=== PATIENT | male | born 1960 ===

== ENCOUNTER 2019-07-22 08:59 | Day surgery (SDC) | payer OTHER ==
[2019-07-22] VITALS (8 sets, daily range): BP systolic 108–135; BP diastolic 68–82
[~2019-07-22] VITALS: Ht 172.7 cm; Wt 70.3 kg
--- NOTE | 2019-07-22 06:49 | Anethesia Preoperative Eval ---
Anesthesia Pre-op PMH/ROS General Date of Evaluation: Jul 22, 2019 Time of Evaluation: 06:48 Anesthesiologist: krystin ASA Score: ASA 3 Mallampati Score Class I : Soft palate, uvula, fauces, pillars visible Class II: Soft palate, uvula, fauces visible Class III: Soft palate, base of uvula visible Class IV: Only hard plate visible Mallampati Classification: Class II Surgeon: gaby Diagnosis: gerd Surgical Procedure: egd Anesthesia History: none Social History: smoking - nonsmoker Family History: no anesthesia problems Medications: see eMAR Patient NPO?: Yes Past Medical History Cardiovascular: Reports: HTN Gastrointestinal/Genitourinary: Reports: GERD Neurologic/Psychiatric: Reports: depression/anxiety Musculoskeletal/Integumentary: Reports: other - back pain PSxH Narrative: shoulder surgery Anesthesia Pre-op Phys. Exam Physician Exam Last Vital Signs Date Time Temp Pulse Resp B/P (MAP) Pulse Ox O2 Delivery O2 Flow Rate FiO2 07/22/19 09:54 97.8 57 18 135/77 99 Room Air Constitutional: NAD Neurologic: CN 2-12 intact Cardiovascular: RRR Respiratory: CTA Gastrointestinal: S/NT/ND Airway Exam Mallampati Score: Class II MO: limited Neck: flexible TMD: 2fb ROM: limited Anesthesia Pre-op A/P Risk Assessment & Plan Assessment: asa3 Plan: mac Status Change Before Surgery: No Pre-Antibiotics Drug: Daphnie Vasques MD Jul 22, 2019 06:49
[2019-07-22] MEDS ORDERED: NKM (09:39)
[2019-07-22] MEDS ORDERED: Lidocaine 1% MPF 10mg/ml 5ml ONE (10:00)
[2019-07-22] MEDS ORDERED: Propofol 200mg/20ml IV ONE (10:00)
[2019-07-22] MEDS ORDERED: LR 1000ml ONE (10:00)
--- NOTE | 2019-07-22 10:05 | Short Stay Surgery H&P ---
History of Present Illness History of Present Illness Chief Complaint Abdominal pains/GERDs and dysphagia HPI Zeb Dawkins is a 59 year old male who was admitted on for GERD Patient History PAST MEDICAL HISTORY: (1) Hypertension (2) History of shoulder surgery Medication History Scheduled No Known Medications* (NKM - No Known Medications*), 0 ., (Reported) Review of Systems Cardiovascular: Reports: no symptoms Respiratory: Reports: no symptoms Skeletal: Reports: trauma Gastrointestinal: Reports: gastro esophageal reflux disease Genitourinary: Reports: no symptoms Neurologic: Reports: no symptoms Endocrine: Reports: no symptoms Hematologic: Reports: no symptoms Physical Exam Vital Signs Last Vital Signs Date Time Temp Pulse Resp B/P (MAP) Pulse Ox O2 Delivery O2 Flow Rate FiO2 07/22/19 09:54 97.8 57 18 135/77 99 Room Air Skin: normal HENT: normal Heart: normal Lungs: normal Abdomen: abnormal Extremities: normal Genitourinary: normal Plan Plan of Care Upper GI. endoscopy with biopsy. Preop Interventions None. Summary of Findings see the reports. Attestation Are the patient's medical conditions optimized for surgery? Attestation Response: yes Richelle Mcneil MD Jul 22, 2019 10:05
--- NOTE | 2019-07-22 10:07 | Discharge Instructions ---
Discharge Instructions Discharge Instructions Follow up with: No need to follow with Dr. Mcneil. Reports will be sent to the [facility] For Congestive Heart Failure Reminder Report to your physician any weight gain of 5 pounds or more in one week. Richelle Mcneil MD Jul 22, 2019 10:07
--- NOTE | 2019-07-22 10:31 | Endoscopy Procedure Note ---
Endoscopy Procedure Note General Indication for Procedure: Abdominal/epigastric pains and GERDS. Dysphagia. Procedures Performed: EGD - Moderate gastritis, gastric body biopsied. Specimen: yes Pt Tolerated Procedure Well: Yes Estimated Blood Loss: none Anesthesia Anesthesiologist: Dr. Weaver Anesthesia: moderate sedation Medications Medication Given: see anesthesia record Inserted Devices Implant(s) used?: No Quality Quality of Bowel Preparation: Excellent Was there any complications?: No GI Core Measures 50 yrs or older w/o bx or poly: Not Applicable 10yrs. F/U recommended: Not Applicable If not recommended, why?: Med reason:<3 yrs.: System Reason:<3 yrs.: Richelle Mcneil MD Jul 22, 2019 10:31
--- NOTE | 2019-07-22 10:32 | Discharge Instructions ---
Discharge Instructions Discharge Instructions Follow up with: Non need to follow with this doctor. Reports will be sent to law office. For Congestive Heart Failure Reminder Report to your physician any weight gain of 5 pounds or more in one week. Richelle Mcneil MD Jul 22, 2019 10:32
[2019-07-22] MEDS ORDERED: LR 1000ml 1,000 ML IVLG SCH (10:37)
[2019-07-22] MEDS ORDERED: DiphenhydrAMINE 50mg/ml Inj IVP PRN (10:45)
[2019-07-22] MEDS ORDERED: fentaNYL 100 mcg/2 mL IV PRN (10:45)
[2019-07-22] MEDS ORDERED: Midazolam 2mg/2ml Inj IVP PRN (10:45)
[2019-07-22] MEDS ORDERED: Atropine Inj 1mg/10ml Syr IV PRN (10:45)
--- NOTE | 2019-07-22 10:54 | Immediate Post-Op Evaluation ---
Immediate Post-Op Evalulation Immediate Post-Op Evalulation Procedure: egd w/bx Date of Evaluation: Jul 22, 2019 Time of Evaluation: 10:53 IV Fluids: 250ml lr Blood Products: none Estimated Blood Loss: negligible Blood Pressure Systolic: 112 Blood Pressure Diastolic: 68 Pulse Rate: 50 Respiratory Rate: 18 O2 Sat by Pulse Oximetry: 99 Temperature (Fahrenheit): 97.2 Pain Score (1-10): 0 Nausea: No Vomiting: No Complications none Patient Status: awake, reacts, patent Hydration Status: adequate Drug: Daphnie Vasques MD Jul 22, 2019 10:54
--- NOTE | 2019-07-22 10:56 | 48 Hour Post Anesthesia Eval ---
Post Anesthesia Evaluation Procedure: egd w/bx Date of Evaluation: Jul 22, 2019 Time of Evaluation: 10:55 Blood Pressure Systolic: 117 0: 71 Pulse Rate: 49 Respiratory Rate: 18 Temperature (Fahrenheit): 97.2 O2 Sat by Pulse Oximetry: 100 Airway: patent Nausea: No Vomiting: No Pain Intensity: 0 Hydration Status: adequate Cardiopulmonary Status: stable Mental Status/LOC: patient returned to baseline Post-Anesthesia Complications: none Follow-up care needed: N/A Daphnie Weaver MD Jul 22, 2019 10:56
--- NOTE | 2019-07-22 15:45 | Operative Note - Dictated ---
DATE OF OPERATION: 07/22/2019 SURGEON: Richelle Mcneil M.D. PROCEDURE: Esophagogastroduodenoscopy with biopsy. PREOPERATIVE DIAGNOSIS: Abdominal pain, dysphagia, and history of gastroesophageal reflux, rule out NSAID-induced gastropathy and peptic ulcer disease. POSTOPERATIVE DIAGNOSIS: Evidence of moderate gastritis, which was biopsied. Otherwise, no other findings. MEDICATION USED: Per Dr. Fleming, anesthesiologist. INSTRUMENT: GIF Olympus upper GI video endoscope. DESCRIPTION OF PROCEDURE: The patient after arriving in the endoscopy unit, was told about risks and benefits of the procedure, which he accepted and signed informed consent. He was then put on the left lateral decubitus position. After adequate IV sedation, the scope was gently passed through the cricopharyngeal area, was lodged into the upper esophagus and gradually advanced towards gastroesophageal junction. The entire length of the esophagus was completely within normal limits. GE junction also looked normal. No evidence of Bonilla's or hiatal hernia. At this time, the scope was advanced into the gastric cavity and insufflation of air caused adequate examination of different parts of the stomach including upper, mid and lower part of the gastric cavity, which revealed evidence of moderate inflammatory process presenting with erythema consistent with moderate gastritis. There was no ulcers or tumors or polyps. No bleeding site noted. At this time, a couple of biopsies from the gastric body was obtained and subsequently scope was passed through the antrum. First and second portion of duodenum were also examined. No other findings except what is stated was found and the scope was gradually pulled out and a retroflexion maneuver was applied and the area of the gastroesophageal junction was examined, which revealed basically the same findings. Finally, the scope was pulled out and the procedure was terminated. The patient tolerated the procedure well and left the endoscopy room in a good condition. Richelle Mcneil M.D. DR: SANDOR JOB#: [id number] CC:
--- NOTE | 2019-07-22 16:30 | Pre-op HX & Phy Repo 2 SIG ---
DATE OF ADMISSION: 07/22/2019 HISTORY OF PRESENT ILLNESS: The patient is a 59-year-old [id number] gentleman, who is being seen prior to undergoing the procedure of upper GI endoscopy for which he has been scheduled to receive for evaluation of his gastrointestinal symptoms that he has suffered and developed subsequent to his work injury. The applicant basically tells me that he is having a feeling of pressure and pain over the epigastric area and upper part of the abdomen. These pains occasionally radiates towards the chest as well and moderate severe intensity as described. 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 He reports that occasionally drinking milk helps him, but there is no history of nausea, vomiting, hematemesis, melena, hematochezia, etc. He has been treated basically with medications such as famotidine and Prevacid in the past, which seems to be somewhat helpful. As I mentioned, the patient has been taking medications of NSAID family such as diclofenac for a long period of time subsequent to his work injury, which seems to have occurred in 2 occasions in 2013 and 2015 as well. He also has difficulty swallowing consistent with dysphagia for solids and liquids periodically. He denies having any diarrhea or constipation. He denies having any history of diagnosis of Helicobacter pylori gastritis in the past. He has never received any upper GI endoscopic examination as well. As I mentioned, the patient was injured at job site at the [employer] and basically was injured over different parts of the body, which was basically over lower back and the left shoulder and was seen by orthopedic surgeon and underwent surgery in 2017 as well. He has also been diagnosed by other physicians to have symptoms of gastroesophageal acid reflux and hypertension and abdominal pain, mostly located over upper and lower part of the abdomen along with psychological condition and sleep problem. PAST MEDICAL HISTORY: Mostly positive for hypertension and bilateral inguinal hernia, but denies having any pancreatitis, hepatitis, pneumonia, bronchitis, arthritis, etc. SURGICAL HISTORY: The patient has had history of left shoulder surgery a couple years ago for the problem subsequent to work accident and injuries. ALLERGIES: To pollen and dust. CHILDHOOD DISEASES: Nonsignificant. FAMILY HISTORY: Nonsignificant. HABITS: The applicant denies drinking alcohol or smoking cigarettes. REVIEW OF SYSTEMS: Basically history of present illness. PHYSICAL EXAMINATION: GENERAL: At this time, reveals alert, oriented gentleman, does not seem to be in any acute distress. VITAL SIGNS: Blood pressure is 135/77, temperature 97.8, pulse rate 67 per minute, respiratory rate 18 per minute, oxygen saturation 99% in room air. HEENT: Normocephalic. Pupils equal in size and reactive to light and accommodation. No visible jaundice. Buccal cavity, tongue midline, well hydrated. No ulcers. NECK: Supple. No JVD, thyromegaly, or adenopathy. CHEST: Clear to auscultation and percussion. No rales or rhonchi. HEART: S1, S2 normal. Regular rhythm. No gallops or murmur. ABDOMEN: Soft, but it is moderately tender mostly over the upper part of the abdomen. There is some tenderness over the lower part of the abdomen as well and evidence of bilateral inguinal hernia, which are reducible. No palpable mass. No organomegaly noted. Bowel sounds are present. EXTREMITIES: Within normal limits except revealing tenderness over his left shoulder. SKIN AND LYMPHATICS: Nonsignificant. CENTRAL NERVOUS SYSTEM: Nonsignificant. PRELIMINARY PREOPERATIVE IMPRESSION: 1. Epigastric pain of uncertain etiology, rule out NSAID-induced gastropathy, peptic ulcer disease, duodenitis, gastritis, esophagitis secondary to use of anti-inflammatory agents. 2. Dysphagia, possibly secondary to gastroesophageal reflux and esophageal spasm, rule out NSAID-induced esophagitis. 3. History of work-related injury. 4. Hypertension, anxiety, and depression. 5. Bilateral inguinal hernia. RECOMMENDATION: The applicant seems to be stable at this time to undergo the procedure of upper GI endoscopy for which he has been authorized and scheduled. He understands the risks and benefits and will sign the consent. Said Eliezer Mcneil DR: DILLON JOB#: [id number] CC:
== END 2019-07-22 11:50 | disposition home or self-care (01) ==
LOC: GAS 08:59
DX: R10.9 Unspecified abdominal pain (principal); R13.10 Dysphagia, unspecified; K21.9 Gastro-esophageal reflux disease without esophagitis; I10 Essential (primary) hypertension; F41.9 Anxiety disorder, unspecified; F32.9 Major depressive disorder, single episode, unspecified; K44.9 Diaphragmatic hernia without obstruction or gangrene; K29.50 Unspecified chronic gastritis without bleeding
CPT/HCPCS: 43239; J2704; J7120; 94003; 94150